=== PATIENT | male | born 1945 | race Caucasian/White ===

== ENCOUNTER 2023-06-30 12:00 | Emergency (ER) | payer MEDICARE, OTHER, SELFPAY ==
[2023-06-30 12:00] VITALS: BMI 23.5
[2023-06-30 12:11] VITALS: BP 118/69
[2023-06-30 12:45] LABS: % Basophils 0.4 % (0-2); % Eosinophils 0.7 % (0-6); % Immature Granulocytes 0.4 % (0-0.5); % Monocytes 1.9 % (1.7-9.3); % Neutrophils 93.6 % (42.2-75.2); Absolute Basophils 0.1 10^3/uL (0-0.2); Absolute Eosinophils 0.1 10^3/uL (0-0.7); Absolute Immature Granulocytes 0.1 10^3/uL (0-0.05); Absolute Lymphocytes 0.4 10^3/uL (1.2-3.4); Absolute Monocytes 0.2 10^3/uL (0.1-0.6); Absolute Neutrophils 11.5 10^3/uL (1.4-6.5); Hematocrit 43.7 % (39.0-52.0); Hemoglobin 15.6 g/dL (13.0-18.0); Mean Corp Hgb Conc. 35.7 g/dL (33.0-37.0); Mean Corpuscular Hgb 34.1 pg (27.0-31.0); Mean Corpuscular Volume 95.6 fL (80.0-94.0); Nucleated Red Blood Cells % 0 % (-); Platelet Count 286 10^3/uL (130-400); Red Blood Cell Count 4.57 10^6/uL (4.70-6.10); Red Cell Dist. Width 13.3 % (11.5-14.5); White Blood Cell Count 12.3 10^3/uL (4.8-10.8)
[2023-06-30 12:59] LABS: ALT (SGPT) 25 U/L (0-50); AST (SGOT) 34 U/L (17-59); Albumin 4.8 g/dl (3.5-5.0); Alkaline Phosphatase 117 U/L (38-126); Blood Urea Nitrogen 23 mg/dl (9-20); Calcium 9.5 mg/dl (8.4-10.2); Carbon Dioxide 24 mmol/L (22-30); Chloride 104 mmol/L (98-107); Glucose 114 mg/dl (70-99); Potassium 4.8 mmol/L (3.5-5.1); Sodium 137 mmol/L (135-145); Total Bilirubin 1.4 mg/dl (0.2-1.3); Total Protein 7.8 g/dl (6.3-8.2); eGFR > 60.00
[2023-06-30 13:08] LABS: Troponin I < 0.012 ng/ml
--- NOTE | 2023-06-30 15:02 | ED.GENMED ---
History of Present Illness
General
Chief Complaint: Chest Pain
Time Seen by Provider: 06/30/23 14:17
Travel History
Have you had any contact with someone who has COVID-19?: No
Do you have any symptoms of coronavirus? Fever > 100 degrees, chills, cough, shortness of breath, sore throat, loss of taste or smell, muscle aches, or headache?: No
History of Present Illness
History of Present Illness:
77-year-old male with history of tobacco abuse presents to the emergency department for evaluation of central chest pain ongoing since this morning. Pain is comparable to past panic attacks however typically resolves after Ativan use, he took 0.5
mg of Ativan at 6:30 AM today and symptoms have persisted. He denies any symptoms at present. Denies any associated fever, chills, sweats, back pain, shortness of breath, nausea, vomiting, or diarrhea. Saw his PCP today and was sent to the
emergency department due to an irregular EKG.
Past History
Past History
ED Past Medical History: None; Negative Asthma, HTN, Hypercholesterolemia or NIDDM
ED Past Surgical History: Appendectomy
Social History
Tobacco: Smoker
Alcohol: Occasional
Personal:
Living: with family
Employment: Employed
Review of Systems
Review of Systems
Allergies reviewed?: Yes
All Other Systems: ROS reviewed and negative except as documented in HPI and ROS
Phy Exam
Physical Exam
Physical Exam:
GEN: Well appearing, NAD, WDWN
Eyes: PERRLA, EOMs intact, no scleral icterus
HENT: NCAT, oral mucosa moist, no JVD, no cervical adenopathy.
Lungs: CTAB, no wheezes, rales, rhonchi, normal chest wall excursion
Cardiac: RRR, no M/R/G, no peripheral edema. Radial pulses 2+ bilat
Neuro: AO x 3, no focal deficits to BUE/BLE, normal sensation throughout
MSK: No gross deformity or ecchymosis. No edema. No digital clubbing
Skin: No rashes, petechiae. Normal color, no pallor or jaundice.
Psych: Calm, cooperative, proper hygiene
Scores
Heart Score for Chest Pain Patients
STEMI patient?: No
History: Slightly or Non-Suspicious
ECG: Normal
Age: >/= 65 years
Risk Factors: 1 or 2 Risk Factors
Troponin: </= Normal Limit
Heart Score for Chest Pain Patients: 3
Heart Score Risk: 2.5% MACE over next 6 weeks
Course
Orders/Labs/Results
Orders:
Orders
06/30/23 12:02
Electrocardiogram (*1) Urgent
Reason for Study: Chest Pain
EKG- Treatment ONCE
06/30/23 12:13
Cardiac Monitoring- Treatment ONCE
EKG- Treatment ONCE
06/30/23 12:22
Complete Blood Count/With Diff Urgent
Comprehensive Metabolic Panel Urgent
Troponin I Urgent
06/30/23 13:59
EKG [Electrocardiogram (*1)] Urgent
Reason for Study: Chest Pain
EKG- Treatment ONCE
06/30/23 15:02
Lorazepam [Ativan] 1 mg PO NOW STA
06/30/23 15:09
Troponin I Routine
06/30/23 16:18
CR Chest - 2 Views Urgent
Comment:
Reason For Exam: chest pain
Abnormal Lab Results
06/30/23
12:22
WBC 12.3 H 10^3/uL
(4.8-10.8)
RBC 4.57 L 10^6/uL
(4.70-6.10)
MCV 95.6 H fL
(80.0-94.0)
MCH 34.1 H pg
(27.0-31.0)
Abs Immat Gran (auto) 0.1 H 10^3/uL
(0-0.05)
Absolute Neuts (auto) 11.5 H 10^3/uL
(1.4-6.5)
Absolute Lymphs (auto) 0.4 L 10^3/uL
(1.2-3.4)
Neutrophils % 93.6 H %
(42.2-75.2)
Lymphocytes % 3.0 L %
(20.5-51.1)
BUN 23 H mg/dl
(9-20)
Glucose 114 H mg/dl
(70-99)
Total Bilirubin 1.4 H mg/dl
(0.2-1.3)
06/30/23 12:22
06/30/23 12:22
Vital Signs
Initial and Last Documented VS:
Initial Vital Signs
Temp Pulse Resp BP Pulse Ox
98.2 F 95 18 118/69 94
06/30/23 12:11 06/30/23 12:11 06/30/23 12:11 06/30/23 12:11 06/30/23 12:11
Last Documented Vital Signs
Temp Pulse Resp BP Pulse Ox
98.2 F 95 18 118/69 94
06/30/23 12:11 06/30/23 12:11 06/30/23 12:11 06/30/23 17:22 06/30/23 12:11
MDM/Problems Addressed
MDM/Problems Addressed:
77-year-old male presents with intermittent chest pain throughout the day. His pain resolved while in the emergency department, his EKG is unremarkable and his workup is negative for ischemia. This is likely anxiety driven
Comment
Comment:
EKG independently interpreted by me shows normal sinus rhythm at a rate of 76, there are some subtle ST depressions inferiorly and laterally, QTc of 418
*Critical Care Note
Total Time (30-74mins, 75-104mins- exclusive of procedures): Not Applicable
ED Attending Note
-
Portions of this chart may have been created with voice recognition software.� Occasional wrong word or��sound alike� substitutions may have occurred due to the inherent limitations of voice recognition software.
Discharge Plan
Departure
Patient Disposition: Home (Routine Discharge)
Date of Disposition: 06/30/23
Time of Disposition: 17:15
Patient with high blood pressure during this ER visit?: No
Discharge Problem:
Atypical chest pain
Instructions: Chest Pain That Is Not Caused by the Heart (DC)
Prescriptions:
No Action
cholecalciferol (vitamin D3) 1,000 UNITS tablet
1,000 units PO DAILY
omega 6-xoc-tiz-fish oil [Fish Oil] 1 EACH capsule
1 ea PO DAILY
niacin [Slo-Niacin] 500 MG tablet extended release
500 mg PO DAILY
Referrals:
Fifi Pickens CRNP [Family Provider] -
Interventions
Interventions:
*Risk Screen - Suicide Last Done: 06/30/23 14:27
*General Assessment Last Done: 06/30/23 14:27
*Neglect/Abuse Screening Last Done: 06/30/23 14:27
ED- Fall Risk Assessment Last Done: 06/30/23 14:27
*ED COVID-19 Vaccine History Last Done: 06/30/23 14:27
*Nursing Disposition Last Done: 06/30/23 17:22
ED- Cardiac Assessment Last Done: 06/30/23 14:27
Discharge Date and Time
Discharge Date/Time: 06/30/23 17:23
[2023-06-30] MEDS: ATIVAN 1 MG PO (15:09)
[2023-06-30 15:46] LABS: Troponin I < 0.012 ng/ml
[2023-06-30 17:22] VITALS: BP 118/69
== END 2023-06-30 17:23 | disposition home or self-care (01) ==
LOC: EMR 12:00
PROVIDERS: Emergency Medicine; Physician Assistant; EMERGENCY PHYSICIAN Emergency Medicine; FAMILY PHYSICIAN Nurse Practitioner Family
DX: R07.89 Other chest pain (principal); F17.200 Nicotine dependence, unspecified, uncomplicated
CPT/HCPCS: 99285; 71046; 80053; 84484; 85025; 93005

== ENCOUNTER → 2023-09-14 07:11 | Outpatient (REF) | payer MEDICARE, OTHER, SELFPAY ==
[2023-09-14 08:39] LABS: ALT (SGPT) 16 U/L (0-50); AST (SGOT) 27 U/L (17-59); Albumin 4.2 g/dl (3.5-5.0); Alkaline Phosphatase 85 U/L (38-126); Blood Urea Nitrogen 21 mg/dl (9-20); Carbon Dioxide 24 mmol/L (22-30); Chloride 104 mmol/L (98-107); Glucose 96 mg/dl (70-99); HDL Cholesterol 51 mg/dl; LDL Cholesterol, Calculated 125 mg/dl; Potassium 4.9 mmol/L (3.5-5.1); Sodium 136 mmol/L (135-145); Total Bilirubin 1.1 mg/dl (0.2-1.3); Total Cholesterol 199 mg/dl (50-199); Triglyceride 119 mg/dl (10-149); Very Low Density Lipoprotein 23 mg/dl (0-30); eGFR > 60.00
== END ==
LOC: REG 07:11
PROVIDERS: ATTENDING PHYSICIAN Nurse Practitioner Family
DX: F17.200 Nicotine dependence, unspecified, uncomplicated (principal); E78.00 Pure hypercholesterolemia, unspecified; R19.5 Other fecal abnormalities; N18.2 Chronic kidney disease, stage 2 (mild); R41.3 Other amnesia; G45.9 Transient cerebral ischemic attack, unspecified
CPT/HCPCS: 36415; 80053; 80061

== ENCOUNTER 2024-04-16 00:14 | Emergency (ER) | payer MEDICARE, OTHER, SELFPAY ==
[2024-04-16 00:27] VITALS: BP 122/68
--- NOTE | 2024-04-16 02:05 | ED.GENMED ---
History of Present Illness
General
Chief Complaint: Eye Problems
Source: patient
Exam Limitations: none
Time Seen by Provider: 04/16/24 01:51
Nursing documentation reviewed up to this point in time: agreed with
History of Present Illness
History of Present Illness:
This is a 78-year-old gentleman with no significant past medical history who states he awoke this morning with complaints of moderate pain left eye, redness and tearing. He complains of foreign body sensation to his left eye, worse with blinking.
No insightful injury but he was working outdoors yesterday. He denies metal grinding nor sanding.
He wears a contact in his right eye only.
He denies headache, no fever no chills, no rash, no sore throat.
He denies vision difficulty, no photophobia.
Past History
Past History
ED Past Medical History: None; Negative Asthma, HTN, Hypercholesterolemia or NIDDM
ED Past Surgical History: Appendectomy
Social History
Tobacco: Smoker
Alcohol: Occasional
Personal:
Living: with family
Employment: Employed
Phy Exam
Physical Exam
Physical Exam:
GENERAL: Alert , in no apparent distress. 78-year-old gentleman appears his stated age, awake and alert, pleasant, appears in no acute distress.
EYE: pupils equal and reactive. Extraocular muscles intact. Moderate tearing from left eye with mild conjunctival injection of left eye. Visual acuity grossly intact bilaterally. Left eye discomfort completely resolved after tetracaine
instilled. Left eye visualized with fluorescein stain and Rosario lamp reveals a superficial abrasion 5 o'clock position on the cornea. There is no foreign body. Anterior chamber is clear. Anicteric
NECK: Supple, nontender, no meningismus, no significant adenopathy.
ENT: posterior pharynx is clear, oral mucosa is moist.
CARDIAC: Regular rate and rhythm. no murmur.
LUNGS: Clear breath sounds bilaterally, no acute respiratory distress, no wheezes/rales/rhonchi
NEUROLOGICAL: Alert and oriented x3, no focal neuro deficits. Gait is menon and steady.
SKIN: Warm and dry, normal color, skin intact. No rash.
MUSCULOSKELETAL: No C/C/E. peripheral pulses are full and equal b/l. No palpable tenderness.
PSYCH: Normal and appropriate interaction.
Course
Orders/Labs/Results
Orders:
Orders
04/16/24 02:02
Gentamicin [Genoptic 0.3% Eye Drops] See Dose Instructions OPHTH NOW STA
Tetanus/Diphth/Acelpertussis [Adacel] 0.5 ml IM .ONCE ONE
04/16/24 02:22
Fluorescein Sodium [Ful-Ina] 1 mg .ROUTE .STK-MED ONE
Tetracaine HCl [Tetracaine 0.5% Ophthalmic Solution] 1 drop .ROUTE .STK-MED ONE
Vital Signs
Initial and Last Documented VS:
Initial Vital Signs
Temp Pulse Resp BP Pulse Ox
97.6 F 69 18 122/68 98
04/16/24 00:27 04/16/24 00:27 04/16/24 00:27 04/16/24 00:27 04/16/24 00:27
Last Documented Vital Signs
Temp Pulse Resp BP Pulse Ox
97.6 F 69 18 138/62 100
04/16/24 00:27 04/16/24 02:14 04/16/24 02:14 04/16/24 02:14 04/16/24 02:14
MDM/Problems Addressed
Differential Diagnosis Includes:
Patient presents with left eye pain, foreign body sensation, tearing. No insightful injury.
Exam remarkable for superficial corneal abrasion 5 o'clock position of the cornea.
Complete relief of discomfort after tetracaine instilled.
Will update Tdap.
Will treat with a course of gentamicin ophthalmic solution as well as short course of tetracaine to be used for as needed discomfort over the next 12 hours.
Follow-up with ophthalmology for recheck.
*Pulse Oximetry
Patient hypoxic: no
*Critical Care Note
Total Time (30-74mins, 75-104mins- exclusive of procedures): Not Applicable
ED Attending Note
-
Portions of this chart may have been created with voice recognition software.� Occasional wrong word or��sound alike� substitutions may have occurred due to the inherent limitations of voice recognition software.
Discharge Plan
Departure
Patient Disposition: Home (Routine Discharge)
Date of Disposition: 04/16/24
Time of Disposition: 02:06
Patient with high blood pressure during this ER visit?: No
Condition: Good
Discharge Problem:
Corneal abrasion, left
Instructions: Corneal Abrasion (DC), How to Use Eye Drops, Tdap vaccine
Prescriptions:
New
gentamicin 0.3 % drops
1 drp ophthalmic (eye) QID Qty: 5 0RF
tetracaine HCl (PF) 0.5 % drops
1 drp ophthalmic (eye) Q5-10M PRN (Reason: eye pain) Qty: 2 0RF
No Action
cholecalciferol (vitamin D3) 1,000 UNITS tablet
1,000 units PO DAILY
omega 0-wrv-pnr-fish oil [Fish Oil] 1 EACH capsule
1 ea PO DAILY
niacin [Slo-Niacin] 500 MG tablet extended release
500 mg PO DAILY
Referrals:
Fifi Pickens CRNP [Family Provider] -
Navdeep Hanson MD [Active] - Call in 1-3 days for appt
Interventions
Interventions:
*Risk Screen - Suicide Last Done: 04/16/24 00:27
*General Assessment Last Done: 04/16/24 00:27
*Neglect/Abuse Screening Last Done: 04/16/24 02:16
ED- Fall Risk Assessment Last Done: 04/16/24 02:16
*ED COVID-19 Vaccine History Last Done: 04/16/24 00:27
*Nursing Disposition Last Done: 04/16/24 02:16
Discharge Date and Time
Discharge Date/Time: 04/16/24 02:17
Print Language: SERBIAN
[2024-04-16] MEDS: GENOPTIC 0.3% EYE DROPS 2 DROP OPHTH (02:09)
[2024-04-16] MEDS: ADACEL 0.5 ML IM (02:11)
[2024-04-16 02:14] VITALS: BP 138/62
== END 2024-04-16 02:17 | disposition home or self-care (01) ==
LOC: EMR 00:14
PROVIDERS: EMERGENCY PHYSICIAN Emergency Medicine; FAMILY PHYSICIAN Nurse Practitioner Family
DX: S05.02XA Injury of conjunctiva and corneal abrasion without foreign body, left eye, initial encounter (principal); X58.XXXA Exposure to other specified factors, initial encounter; F17.200 Nicotine dependence, unspecified, uncomplicated; Z23 Encounter for immunization
CPT/HCPCS: 99283; 90471; 90715

== ENCOUNTER → 2024-11-08 09:29 | Outpatient (REF) | payer MEDICARE, OTHER, SELFPAY ==
[2024-11-08 10:56] LABS: Hematocrit 39.9 % (39.0-52.0); Hemoglobin 13.8 g/dL (13.0-18.0); Mean Corp Hgb Conc. 34.6 g/dL (33.0-37.0); Mean Corpuscular Volume 98.0 fL (80.0-94.0); Nucleated Red Blood Cells % 0 % (-); Platelet Count 285 10^3/uL (130-400); Red Cell Dist. Width 12.8 % (11.5-14.5)
[2024-11-08 11:18] LABS: ALT (SGPT) 18 U/L (0-50); AST (SGOT) 20 U/L (17-59); Albumin 4.4 g/dl (3.5-5.0); Alkaline Phosphatase 89 U/L (38-126); Blood Urea Nitrogen 17 mg/dl (9-20); Calcium 9.8 mg/dl (8.4-10.2); Carbon Dioxide 27 mmol/L (22-30); Chloride 107 mmol/L (98-107); Glucose 96 mg/dl (70-99); HDL Cholesterol 41 mg/dl; LDL Cholesterol, Calculated 136 mg/dl; Potassium 5.1 mmol/L (3.5-5.1); Sodium 140 mmol/L (135-145); Total Protein 7.1 g/dl (6.3-8.2); Very Low Density Lipoprotein 16 mg/dl (0-30); eGFR > 60.00
== END ==
LOC: REG 09:29
PROVIDERS: FAMILY PHYSICIAN Family Medicine
DX: Z00.00 Encounter for general adult medical examination without abnormal findings (principal); G45.9 Transient cerebral ischemic attack, unspecified
CPT/HCPCS: 36415; 80053; 80061; 85025

== ENCOUNTER → 2024-11-30 15:19 | Outpatient (REF) | payer MEDICARE, OTHER, SELFPAY | LOC: RAD 15:19 | PROVIDERS: ATTENDING PHYSICIAN Family Medicine | DX: F17.200 Nicotine dependence, unspecified, uncomplicated (principal) | CPT/HCPCS: 71250 ==

== ENCOUNTER → 2024-12-07 10:08 | Outpatient (REF) | payer MEDICARE, OTHER, SELFPAY ==
[2024-12-07 13:12] LABS: Folate 18.3 ng/ml (2.76-20); Vitamin B12 > 1000 pg/ml (239-931)
== END ==
LOC: REG 10:08
PROVIDERS: FAMILY PHYSICIAN Family Medicine
DX: D75.89 Other specified diseases of blood and blood-forming organs (principal); R42 Dizziness and giddiness; D51.9 Vitamin B12 deficiency anemia, unspecified; R94.6 Abnormal results of thyroid function studies
CPT/HCPCS: 36415; 82607; 82746; 84443

== ENCOUNTER → 2025-04-10 13:13 | Outpatient (REF) | payer MEDICARE, OTHER, SELFPAY | LOC: EMG 13:13 | PROVIDERS: ATTENDING PHYSICIAN Physician Assistant; FAMILY PHYSICIAN Family Medicine | DX: R29.898 Other symptoms and signs involving the musculoskeletal system (principal); R20.0 Anesthesia of skin; R20.2 Paresthesia of skin | CPT/HCPCS: 95886; 95910 ==